=== PATIENT | male | born 1935 | race Caucasian/White ===

== ENCOUNTER 2017-04-21 11:36 | Inpatient (IN) | payer OTHER ==
[~2017-04-21] VITALS: Ht 182.9 cm; Wt 90.9 kg
[~2017-04-21 11:36] MED LIST: AMLO5TAB2 PO; ASPI-496 PO; CALC-141 PO; CETI10TA24 PO; DOXY100T PO; INSU100I18 SQ-INSULIN; INSU100I28 SQ-INSULIN; LEVO500T8 PO; LISI-167 PO; LORA10TA3 PO; METR500T PO; MULT-658 PO; OMEP-110 PO; PIOG30TA3 PO; PRED20TA PO; PRIM50TA PO; SODI650T PO; TRAM50TA2 PO; VITA1TAB61 PO
[2017-04-21 12:52] LABS: BASOPHILS # (AUTO) 0.03 x10^3/uL (0-0.1); BASOPHILS % (AUTO) 0 % (0-1); EOSINOPHILS # (AUTO) 0.02 x10^3/uL (0-0.4); EOSINOPHILS % (AUTO) 0 % (1-7); LYMPHOCYTES # (AUTO) 0.35 x10^3/uL (1-3.4); LYMPHOCYTES % (AUTO) 4 % (22-44); MD NO; MEAN CORPUSCULAR HEMOGLOBIN 32.5 pg (27.5-34.5); MEAN CORPUSCULAR HGB CONC 32.9 g/dL (33.2-36.2); MEAN CORPUSCULAR VOLUME 98.8 fL (81-97); MEAN PLATELET VOLUME 8.7 fL (7.4-10.4); MONOCYTES % (AUTO) 5 % (2-9); NEUTROPHILS # (AUTO) 8.12 x10^3/uL (1.8-6.8); NEUTROPHILS % (AUTO) 91 % (42-75); PLATELET COUNT 263 x10^3/uL (130-400); RED BLOOD COUNT 3.54 x10^6/uL (4.38-5.82); RED CELL DISTRIBUTION WIDTH 15.4 % (9.4-14.8)
[2017-04-21] MEDS ORDERED: SODIUM CHLORIDE 0.9% 1,000ML IVBOLUS ONE (13:00)
[2017-04-21 13:01] LABS: ALBUMIN 2.9 g/dL (3.4-5.0); ANION GAP 11 mmol/L (5-15); CALCIUM 8.1 mg/dL (8.5-10.1); CHLORIDE 102 mmol/L (98-107)
[2017-04-21 13:06] LABS: ALANINE AMINOTRANSFERASE 11 U/L (12-78); ALKALINE PHOSPHATASE 86 U/L (45-117); BILIRUBIN,TOTAL 0.5 mg/dL (0.2-1.0); CREATININE 3.21 mg/dL (0.7-1.3); TOTAL PROTEIN 6.9 g/dL (6.4-8.2); TROPONIN I < 0.015 ng/mL (0.000-0.045)
[2017-04-21] MEDS ORDERED: SODIUM CHLORIDE 0.9% 1,000 ML IV ONE (13:41)
[2017-04-21 13:55] LABS: ACETONE, SERUM Small (20mg/dL) mg/dL (Negative)
[2017-04-21] MEDS ORDERED: SODIUM CHLORIDE FLUSH 10ML SYR IVF ONE (14:00)
[2017-04-21] MEDS ORDERED: INSULIN REGULAR 100 UNITS/ML, 3ML VIAL IVPush ONE (14:00)
[2017-04-21] MEDS ORDERED: INSULIN REGULAR 100 UNITS/ML, 3ML VIAL SQ-INSULIN ONE (14:00)
[2017-04-21 14:10] LABS: THYROID STIMULATING HORMONE 1.46 mIU/L (0.358-3.740)
[2017-04-21] MEDS ORDERED: INSULIN REGULAR 100 UNITS/ML, 3ML VIAL ONE (14:26)
[2017-04-21] MEDS: SODIUM CHLORIDE 0.9% 1,000 ML IV SCH (14:40)
[2017-04-21] MEDS ORDERED: DOCUSATE 100 MG CAPSULE PO PRN (15:00)
[2017-04-21] MEDS ORDERED: POLYETHYLENE GLYCOL 17 GM PACKET PO PRN (15:00)
[2017-04-21] MEDS ORDERED: MAGNESIUM CITRATE 300ML ORAL SOL PO ONE (15:00)
[2017-04-21] MEDS ORDERED: BISACODYL 10 MG SUPP PR PRN (15:00)
[2017-04-21] MEDS ORDERED: ACETAMINOPHEN 325 MG TABLET PO PRN (15:00)
[2017-04-21] MEDS ORDERED: ONDANSETRON 2MG/ML, 2ML IVPush PRN (15:00)
[2017-04-21] MEDS ORDERED: LABETALOL 5MG/ML, 20ML IVPush PRN (15:00)
[2017-04-21 15:16] LABS: MICROSCOPIC INDICATED
[2017-04-21 15:17] LABS: CULTURE INDICATED? YES
[2017-04-21 15:25] VITALS: BP 156/86
[2017-04-21] MEDS ORDERED: CEFTRIAXONE PMX 1GM/50ML 50 ML IV SCH (16:00)
[2017-04-21] MEDS: HEPARIN 5,000 UNITS/ML, 1ML SQ SCH (16:16)
[2017-04-21] MEDS: INSULIN LISPRO 100 UNITS/ML, PEN SQ-INSULIN SCH ×2 (16:31→21:59)
[2017-04-21] MEDS: CEFTRIAXONE 1,000 MG in SODIUM CHLORIDE 0.9% 50 ML IV SCH (16:31)
[2017-04-21] MEDS ORDERED: INSULIN LISPRO 100 UNITS/ML, PEN SQ-INSULIN SCH (18:30)
[2017-04-21 20:21] VITALS: BP 157/78
[2017-04-21] MEDS: PRIMIDONE 50 MG TABLET PO SCH (21:59)
[2017-04-21] MEDS: SODIUM BICARBONATE 650 MG TABLET PO SCH (21:59)
[2017-04-21] MEDS: AMLODIPINE 5 MG TABLET PO SCH (21:59)
[2017-04-21] MEDS: INSULIN GLARGINE 100 UNITS/ML, PEN SQ-INSULIN SCH (22:04)
[2017-04-22] MEDS: HEPARIN 5,000 UNITS/ML, 1ML SQ SCH ×3 (00:08→16:50)
[2017-04-22] MEDS: SODIUM CHLORIDE 0.9% 1,000 ML IV SCH (00:08)
[2017-04-22 02:05] VITALS: BP 132/64
[2017-04-22 05:29] LABS: CALCIUM 8.3 mg/dL (8.5-10.1); CHLORIDE 116 mmol/L (98-107)
[2017-04-22 05:33] LABS: ANION GAP 8 mmol/L (5-15); CREATININE 2.54 mg/dL (0.7-1.3)
[2017-04-22 05:40] LABS: BASOPHILS # (AUTO) 0.03 x10^3/uL (0-0.1); BASOPHILS % (AUTO) 0 % (0-1); EOSINOPHILS # (AUTO) 0.15 x10^3/uL (0-0.4); EOSINOPHILS % (AUTO) 1 % (1-7); LYMPHOCYTES # (AUTO) 0.73 x10^3/uL (1-3.4); LYMPHOCYTES % (AUTO) 6 % (22-44); MD NO; MEAN CORPUSCULAR HEMOGLOBIN 32.9 pg (27.5-34.5); MEAN CORPUSCULAR VOLUME 96.8 fL (81-97); MEAN PLATELET VOLUME 8.1 fL (7.4-10.4); MONOCYTES # (AUTO) 0.63 x10^3/uL (0.2-0.8); MONOCYTES % (AUTO) 5 % (2-9); NEUTROPHILS # (AUTO) 10.09 x10^3/uL (1.8-6.8); NEUTROPHILS % (AUTO) 87 % (42-75); PLATELET COUNT 275 x10^3/uL (130-400); RED BLOOD COUNT 3.47 x10^6/uL (4.38-5.82); RED CELL DISTRIBUTION WIDTH 14.5 % (9.4-14.8)
[2017-04-22 07:32] VITALS: BP 155/78
[2017-04-22] MEDS: SODIUM BICARBONATE 650 MG TABLET PO SCH ×2 (08:53→20:37)
[2017-04-22] MEDS: INSULIN LISPRO 100 UNITS/ML, PEN SQ-INSULIN SCH ×4 (08:53→20:39)
[2017-04-22] MEDS: PRIMIDONE 50 MG TABLET PO SCH ×2 (08:53→20:37)
[2017-04-22] MEDS: ASPIRIN 81 MG TABLET EC PO SCH (08:53)
[2017-04-22] MEDS: POTASSIUM CHLORIDE 20 MEQ TAB.ER.PRT PO SCH ×2 (08:53→16:51)
[2017-04-22] MEDS: AMLODIPINE 5 MG TABLET PO SCH ×2 (08:54→20:37)
[2017-04-22 14:00] VITALS: BP 139/73
[2017-04-22] MEDS: CEFTRIAXONE 1,000 MG in SODIUM CHLORIDE 0.9% 50 ML IV SCH (15:42)
[2017-04-22 20:00] VITALS: BP 156/75
[2017-04-22] MEDS: INSULIN GLARGINE 100 UNITS/ML, PEN SQ-INSULIN SCH (20:38)
[2017-04-23] MEDS: HEPARIN 5,000 UNITS/ML, 1ML SQ SCH ×3 (00:43→16:22)
[2017-04-23 03:51] VITALS: BP 154/83
[2017-04-23 05:25] LABS: BASOPHILS # (AUTO) 0.03 x10^3/uL (0-0.1); BASOPHILS % (AUTO) 0 % (0-1); EOSINOPHILS # (AUTO) 0.12 x10^3/uL (0-0.4); EOSINOPHILS % (AUTO) 1 % (1-7); LYMPHOCYTES # (AUTO) 0.97 x10^3/uL (1-3.4); LYMPHOCYTES % (AUTO) 11 % (22-44); MD NO; MEAN CORPUSCULAR HEMOGLOBIN 32.2 pg (27.5-34.5); MEAN CORPUSCULAR HGB CONC 33.6 g/dL (33.2-36.2); MEAN PLATELET VOLUME 8.4 fL (7.4-10.4); MONOCYTES % (AUTO) 6 % (2-9); NEUTROPHILS # (AUTO) 7.22 x10^3/uL (1.8-6.8); NEUTROPHILS % (AUTO) 82 % (42-75); PLATELET COUNT 241 x10^3/uL (130-400); RED CELL DISTRIBUTION WIDTH 14.6 % (9.4-14.8)
[2017-04-23 05:30] LABS: ANION GAP 9 mmol/L (5-15); CALCIUM 8.2 mg/dL (8.5-10.1); CHLORIDE 115 mmol/L (98-107); CREATININE 2.85 mg/dL (0.7-1.3)
[2017-04-23] MEDS: POTASSIUM CHLORIDE 20 MEQ TAB.ER.PRT PO SCH (08:00)
[2017-04-23] MEDS: AMLODIPINE 5 MG TABLET PO SCH ×2 (08:05→22:23)
[2017-04-23] MEDS: ASPIRIN 81 MG TABLET EC PO SCH (08:05)
[2017-04-23] MEDS: SODIUM BICARBONATE 650 MG TABLET PO SCH ×2 (08:05→22:23)
[2017-04-23] MEDS: PRIMIDONE 50 MG TABLET PO SCH ×2 (08:06→22:23)
[2017-04-23 08:50] VITALS: BP 146/69
[2017-04-23] MEDS: INSULIN LISPRO 100 UNITS/ML, PEN SQ-INSULIN SCH ×4 (09:19→22:25)
[2017-04-23] MEDS ORDERED: LACTATED RINGERS 1,000 ML IV SCH (12:30)
[2017-04-23 14:53] VITALS: BP 140/64
[2017-04-23] MEDS: CEFTRIAXONE 1,000 MG in SODIUM CHLORIDE 0.9% 50 ML IV SCH (16:22)
[2017-04-23 20:00] VITALS: BP 146/76
[2017-04-23 22:21] VITALS: BP 147/76
[2017-04-23] MEDS: INSULIN GLARGINE 100 UNITS/ML, PEN SQ-INSULIN SCH (22:24)
[2017-04-24] MEDS: HEPARIN 5,000 UNITS/ML, 1ML SQ SCH ×2 (00:25→08:36)
[2017-04-24 02:00] VITALS: BP 128/67
[2017-04-24 07:00] VITALS: BP 134/72
[2017-04-24] MEDS: ASPIRIN 81 MG TABLET EC PO SCH (08:36)
[2017-04-24] MEDS: PRIMIDONE 50 MG TABLET PO SCH (08:36)
[2017-04-24] MEDS: AMLODIPINE 5 MG TABLET PO SCH (08:36)
[2017-04-24] MEDS: SODIUM BICARBONATE 650 MG TABLET PO SCH (08:36)
[2017-04-24] MEDS: INSULIN LISPRO 100 UNITS/ML, PEN SQ-INSULIN SCH ×2 (08:37→12:19)
[2017-04-24] MEDS: INSULIN GLARGINE 100 UNITS/ML, PEN SQ-INSULIN SCH (08:41)
[2017-04-24 09:27] LABS: BASOPHILS # (AUTO) 0.01 x10^3/uL (0-0.1); BASOPHILS % (AUTO) 0 % (0-1); EOSINOPHILS # (AUTO) 0.21 x10^3/uL (0-0.4); EOSINOPHILS % (AUTO) 3 % (1-7); LYMPHOCYTES # (AUTO) 0.77 x10^3/uL (1-3.4); LYMPHOCYTES % (AUTO) 9 % (22-44); MD NO; MEAN CORPUSCULAR HEMOGLOBIN 32.1 pg (27.5-34.5); MEAN CORPUSCULAR HGB CONC 33.7 g/dL (33.2-36.2); MEAN CORPUSCULAR VOLUME 95.5 fL (81-97); MONOCYTES # (AUTO) 0.37 x10^3/uL (0.2-0.8); MONOCYTES % (AUTO) 4 % (2-9); NEUTROPHILS # (AUTO) 7.09 x10^3/uL (1.8-6.8); NEUTROPHILS % (AUTO) 84 % (42-75); PLATELET COUNT 254 x10^3/uL (130-400); RED CELL DISTRIBUTION WIDTH 14.5 % (9.4-14.8)
[2017-04-24 09:36] LABS: ANION GAP 10 mmol/L (5-15); CALCIUM 8.1 mg/dL (8.5-10.1); CHLORIDE 111 mmol/L (98-107); CREATININE 2.53 mg/dL (0.7-1.3)
[2017-04-24] MEDS ORDERED: INSU100I13 SQ-INSULIN (10:22)
[2017-04-24] MEDS ORDERED: CEFD300C37 PO (10:22)
[2017-04-24] MEDS ORDERED: INSU100I11 SQ-INSULIN (10:22)
[2017-04-24 12:30] VITALS: BP 159/77
== END 2017-04-24 13:14 | disposition home health service (06) | DRG 682 ==
LOC: ED 14:35 → EDIP 14:40 → ED 14:42 → 4WST 15:14
PROVIDERS: ADMIT Internal Medicine; ATTEND Internal Medicine
PROC: 0T9B70Z Drainage of Bladder with Drainage Device, Via Natural or Artificial Opening (ICD-10-PCS; principal; 2017-04-21)
DX: N17.0 Acute kidney failure with tubular necrosis (principal); E11.00 Type 2 diabetes mellitus with hyperosmolarity without nonketotic hyperglycemic-hyperosmolar coma (NKHHC); E44.0 Moderate protein-calorie malnutrition; E87.0 Hyperosmolality and hypernatremia; E11.22 Type 2 diabetes mellitus with diabetic chronic kidney disease; D63.8 Anemia in other chronic diseases classified elsewhere; C61 Malignant neoplasm of prostate; N39.0 Urinary tract infection, site not specified; E87.1 Hypo-osmolality and hyponatremia; W18.30XA Fall on same level, unspecified, initial encounter; C67.9 Malignant neoplasm of bladder, unspecified; K59.00 Constipation, unspecified; N18.4 Chronic kidney disease, stage 4 (severe); Z79.4 Long term (current) use of insulin; Z82.49 Family history of ischemic heart disease and other diseases of the circulatory system; Z85.46 Personal history of malignant neoplasm of prostate; Z85.51 Personal history of malignant neoplasm of bladder; Z98.1 Arthrodesis status; Y93.89 Activity, other specified; Y92.89 Other specified places as the place of occurrence of the external cause; Y99.8 Other external cause status; Z68.27 Body mass index [BMI] 27.0-27.9, adult
CPT/HCPCS: 36415; 70450; 74022; 80048; 80053; 81001; 82010; 82306; 82800; 82947; 82962; 83036; 83735; 83930; 83970; 84100; 84443; 84484; 85025; 87077; 87086; 87186; 93005; J1644; J1815; J7030; J7120

== ENCOUNTER → 2018-07-15 | Outpatient (CLI) | payer MEDICARE ==
[~2018-07-15] MED LIST changes: +AMLO-150 PO; -AMLO5TAB2 PO; +CEFD300C37 PO; +CHOL10003 PO; +INSU100I11 SQ-INSULIN; +INSU100I13 SQ-INSULIN; +IRON1TAB60 PO; +LORA-247 PO; -LORA10TA3 PO; -PIOG30TA3 PO; +PIOG30TA67 PO; +[UNRECOGNIZED DRUG - OTHER]
== END | disposition home or self-care (01) ==
LOC: CFH 09:51
PROVIDERS: ATTEND Urology
DX: C67.9 Malignant neoplasm of bladder, unspecified (principal); N28.1 Cyst of kidney, acquired
CPT/HCPCS: 76770

== ENCOUNTER 2018-09-23 04:33 | Emergency (ER) | payer MEDICARE ==
[~2018-09-23] VITALS: Ht 180.3 cm; Wt 95.8 kg
[2018-09-23 05:58] VITALS: BP 156/76
== END 2018-09-23 06:33 | disposition home or self-care (01) ==
LOC: ED 05:44
DX: G43.C1 Periodic headache syndromes in child or adult, intractable (principal); I10 Essential (primary) hypertension; E11.65 Type 2 diabetes mellitus with hyperglycemia; Z87.891 Personal history of nicotine dependence; Z85.51 Personal history of malignant neoplasm of bladder
CPT/HCPCS: 70450; 99284

== ENCOUNTER 2018-10-30 10:36 | Emergency (ER) | payer MEDICARE ==
[~2018-10-30] VITALS: Ht 180.3 cm; Wt 97.0 kg
[~2018-10-30 10:36] MED LIST changes: +FURO40TA6 PO
[2018-10-30 10:59] VITALS: BP 154/64
--- NOTE | 2018-10-30 11:24 | NUR ---
PT STATES HE FELL OUT OF BED. LEFT ARM HAS LARGE SKIN TEAR W FLAP, BANDAGE REMOVED. LEFT WRIST W SKIN TEAR, MIDDLE TOE HAS NAIL HANGING OFF. PT DENIES HITTING HEAD OR LOC. ANSWERING ALL QUESTIONS. PT DOES NOT APPEAR IN DISTRESS. MD AT BEDSIDE.
--- NOTE | 2018-10-30 11:56 | NUR ---
DPatient/Caregiver given discharge instructions and they have confirmed that they understand the instructions. Patient ambulatory with steady gait.
--- NOTE | 2018-10-30 11:56 | NUR ---
RN DRESSED SKIN TEAR W NO ADHESIVE BANDAGE, TO ARM, WRIST AND TOES. CLEANSED W CLEANSER. PT TOLERATED WELL.
== END 2018-10-30 11:58 | disposition home or self-care (01) ==
LOC: ED 11:47
DX: S91.205A Unspecified open wound of left lesser toe(s) with damage to nail, initial encounter (principal); I10 Essential (primary) hypertension; E11.9 Type 2 diabetes mellitus without complications; W01.0XXA Fall on same level from slipping, tripping and stumbling without subsequent striking against object, initial encounter; Y93.89 Activity, other specified; Y92.89 Other specified places as the place of occurrence of the external cause; Y99.8 Other external cause status
CPT/HCPCS: 99282

== ENCOUNTER → 2019-02-16 | Outpatient (CLI) | payer MEDICARE | END | disposition home or self-care (01) | LOC: CFH 09:01 | PROVIDERS: ATTEND Internal Medicine | DX: K46.9 Unspecified abdominal hernia without obstruction or gangrene (principal) | CPT/HCPCS: 76857 ==